=== PATIENT | female | born 1970 | race Caucasian/White ===

== ENCOUNTER 2020-03-27 11:42 | Observation (INO) | payer BC ==
[2020-03-27] MEDS ORDERED: SODIUM CHLORIDE 0.9% 1,000 ML IV STA (12:19)
[2020-03-27] MEDS ORDERED: MORPHINE SULFATE 2 MG/ML SYRINGE IVP STA (12:19)
[2020-03-27] MEDS ORDERED: ONDANSETRON 4 MG/2 ML VIAL IVP STA (12:19)
--- NOTE | 2020-03-27 12:25 | ED ---
General Adult HPI - General Chief complaint: Abdominal Pain Stated complaint: body aches Time Seen by Provider: 03/27/20 12:13 Source: patient, RN notes reviewed, old records reviewed Mode of arrival: ambulatory Limitations: no limitations - History of Present Illness Initial comments: 49-year-old female presents for evaluation of nausea vomiting and diarrhea. With some associated mild generalized abdominal pain. Patient's symptoms 7 present for today only. She states she's had some body aches as well as mild cough. No shortness of breath. She is uncertain if she's been exposed to anyone with coronavirus but believes she has. She's had previous cholecystectomy, previous appendectomy. Denies fever. - Related Data Previous Rx's Medication Instructions Recorded Ondansetron Odt [Zofran ODT] 4 mg PO Q8HR PRN #30 tab 02/17/14 Allergies Allergy/AdvReac Type Severity Reaction Status Date / Time No Known Allergies Allergy Verified 03/27/20 11:46 Review of Systems ROS Statement: Those systems with pertinent positive or pertinent negative responses have been documented in the HPI. ROS Other: All systems not noted in ROS Statement are negative. Past Medical History Past Medical History: No Reported History History of Any Multi-Drug Resistant Organisms: None Reported Past Surgical History: Appendectomy, Cholecystectomy, Hysterectomy Past Psychological History: No Psychological Hx Reported Smoking Status: Current every day smoker Past Alcohol Use History: None Reported Past Drug Use History: None Reported General Exam Limitations: no limitations General appearance: alert, in no apparent distress Head exam: Present: atraumatic, normocephalic Eye exam: Present: normal appearance, PERRL ENT exam: Present: mucous membranes dry Neck exam: Present: normal inspection. Absent: tenderness, meningismus Respiratory exam: Present: normal lung sounds bilaterally. Absent: respiratory distress, wheezes Cardiovascular Exam: Present: regular rate, normal rhythm GI/Abdominal exam: Present: soft, tenderness (Mild generalized tenderness). Absent: distended, guarding, rebound Extremities exam: Present: normal inspection, normal capillary refill. Absent: pedal edema Back exam: Present: normal inspection Neurological exam: Present: alert, oriented X3, CN II-XII intact. Absent: motor sensory deficit Psychiatric exam: Present: normal affect, normal mood Skin exam: Present: warm, dry, intact. Absent: cyanosis, diaphoretic Course Vital Signs 03/27/20 03/27/20 11:44 14:15 Temperature 97.9 F Pulse Rate 88 72 Respiratory 22 18 Rate Blood Pressure 112/74 105/66 O2 Sat by Pulse 100 100 Oximetry Medical Decision Making - Medical Decision Making 29-year-old female with generalized abdominal pain, nausea vomiting and diarrhea. Workup reveals leukocytosis, elevated hemoglobin, likely secondary to dehydration and hemoconcentration. She has normal electrolytes with exception of some mild hypercalcemia. Her coronavirus test is negative. At the time of reevaluation she still having significant nausea and vomiting. No episodes of diarrhea while in the emergency department. CT is performed which shows stomach distended by fluid as well as small bowel consistent with an enterocolitis. She will be admitted for symptom control. Case discussed with Dr. Munroe. - Lab Data Result diagrams: 03/27/20 12:31 03/27/20 12:31 Lab Results 03/27/20 03/27/20 03/27/20 Range/Units 12:31 12:31 12:31 WBC 15.1 H (3.8-10.6) k/uL RBC 5.32 (3.80-5.40) m/uL Hgb 16.9 H (11.4-16.0) gm/dL Hct 50.8 H (34.0-46.0) % MCV 95.5 (80.0-100.0) fL MCH 31.8 (25.0-35.0) pg MCHC 33.3 (31.0-37.0) g/dL RDW 11.8 (11.5-15.5) % Plt Count 347 (150-450) k/uL MPV 6.7 Neutrophils % 82 % Lymphocytes % 10 % Monocytes % 5 % Eosinophils % 1 % Basophils % 0 % Neutrophils # 12.4 H (1.3-7.7) k/uL Lymphocytes # 1.5 (1.0-4.8) k/uL Monocytes # 0.8 (0-1.0) k/uL Eosinophils # 0.2 (0-0.7) k/uL Basophils # 0.1 (0-0.2) k/uL PT 9.7 (9.0-12.0) sec INR 0.9 (<1.2) APTT 24.2 (22.0-30.0) sec Sodium 142 (137-145) mmol/L Potassium 5.1 (3.5-5.1) mmol/L Chloride 99 (98-107) mmol/L Carbon Dioxide 33 H (22-30) mmol/L Anion Gap 10 mmol/L BUN 15 (7-17) mg/dL Creatinine 0.86 (0.52-1.04) mg/dL Est GFR (CKD-EPI)AfAm >90 (>60 ml/min/1.73 sqM) Est GFR (CKD-EPI)NonAf 80 (>60 ml/min/1.73 sqM) Glucose 114 H (74-99) mg/dL Plasma Lactic Acid Sánchez (0.7-2.0) mmol/L Calcium 11.0 H (8.4-10.2) mg/dL Total Bilirubin 0.9 (0.2-1.3) mg/dL AST 26 (14-36) U/L ALT 21 (4-34) U/L Alkaline Phosphatase 102 (38-126) U/L Total Protein 8.6 H (6.3-8.2) g/dL Albumin 5.0 (3.5-5.0) g/dL Amylase 57 (30-110) U/L Lipase 38 (23-300) U/L Urine Color Urine Appearance (Clear) Urine pH (5.0-8.0) Ur Specific [place] (1.001-1.035) Urine Protein (Negative) Urine Glucose (UA) (Negative) Urine Ketones (Negative) Urine Blood (Negative) Urine Nitrite (Negative) Urine Bilirubin (Negative) Urine Urobilinogen (<2.0) mg/dL Ur Leukocyte Esterase (Negative) Urine RBC (0-5) /hpf Urine WBC (0-5) /hpf Ur Squamous Epith Cells (0-4) /hpf Urine Bacteria (None) /hpf Urine Mucus (None) /hpf Coronavirus (PCR) (Not Detectd) 03/27/20 03/27/20 03/27/20 Range/Units 12:31 12:38 12:38 WBC (3.8-10.6) k/uL RBC (3.80-5.40) m/uL Hgb (11.4-16.0) gm/dL Hct (34.0-46.0) % MCV (80.0-100.0) fL MCH (25.0-35.0) pg MCHC (31.0-37.0) g/dL RDW (11.5-15.5) % Plt Count (150-450) k/uL MPV Neutrophils % % Lymphocytes % % Monocytes % % Eosinophils % % Basophils % % Neutrophils # (1.3-7.7) k/uL Lymphocytes # (1.0-4.8) k/uL Monocytes # (0-1.0) k/uL Eosinophils # (0-0.7) k/uL Basophils # (0-0.2) k/uL PT (9.0-12.0) sec INR (<1.2) APTT (22.0-30.0) sec Sodium (137-145) mmol/L Potassium (3.5-5.1) mmol/L Chloride (98-107) mmol/L Carbon Dioxide (22-30) mmol/L Anion Gap mmol/L BUN (7-17) mg/dL Creatinine (0.52-1.04) mg/dL Est GFR (CKD-EPI)AfAm (>60 ml/min/1.73 sqM) Est GFR (CKD-EPI)NonAf (>60 ml/min/1.73 sqM) Glucose (74-99) mg/dL Plasma Lactic Acid Sánchez 1.0 (0.7-2.0) mmol/L Calcium (8.4-10.2) mg/dL Total Bilirubin (0.2-1.3) mg/dL AST (14-36) U/L ALT (4-34) U/L Alkaline Phosphatase (38-126) U/L Total Protein (6.3-8.2) g/dL Albumin (3.5-5.0) g/dL Amylase (30-110) U/L Lipase (23-300) U/L Urine Color Yellow Urine Appearance Cloudy H (Clear) Urine pH 6.0 (5.0-8.0) Ur Specific [place] 1.032 (1.001-1.035) Urine Protein 1+ H (Negative) Urine Glucose (UA) Negative (Negative) Urine Ketones Trace H (Negative) Urine Blood Negative (Negative) Urine Nitrite Negative (Negative) Urine Bilirubin Negative (Negative) Urine Urobilinogen 4.0 (<2.0) mg/dL Ur Leukocyte Esterase Moderate H (Negative) Urine RBC 2 (0-5) /hpf Urine WBC 5 (0-5) /hpf Ur Squamous Epith Cells 11 H (0-4) /hpf Urine Bacteria Many H (None) /hpf Urine Mucus Many H (None) /hpf Coronavirus (PCR) Not Detected (Not Detectd) Disposition Clinical Impression: Abdominal pain, Dehydration Disposition: ADMITTED IP TO THIS [facility] Condition: Stable Is patient prescribed a controlled substance at d/c from ED?: No Referrals: Conor Barrera MD [Primary Care Provider] - 1-2 days Decision to Admit Reason: Admit from EC Decision Date: 03/27/20 Decision Time: 14:31
[2020-03-27 12:51] LABS: Basophils # (A) 0.1 k/uL (0-0.2); Basophils % (A) 0 %; Eosinophils # (A) 0.2 k/uL (0-0.7); Eosinophils % (A) 1 %; HCT 50.8 % (34.0-46.0); HGB 16.9 gm/dL (11.4-16.0); Lymphocytes # (A) 1.5 k/uL (1.0-4.8); Lymphocytes % (A) 10 %; MCH 31.8 pg (25.0-35.0); MCHC 33.3 g/dL (31.0-37.0); MCV 95.5 fL (80.0-100.0); Mean Platelet Volume 6.7; Monocytes # (A) 0.8 k/uL (0-1.0); Monocytes % (A) 5 %; Neutrophils # (A) 12.4 k/uL (1.3-7.7); Neutrophils % (A) 82 %; Platelet Count 347 k/uL (150-450); RBC 5.32 m/uL (3.80-5.40); RDW 11.8 % (11.5-15.5); WBC 15.1 k/uL (3.8-10.6)
[2020-03-27 13:02] LABS: INR 0.9 (<1.2); Partial Thromboplastin Time 24.2 sec (22.0-30.0); Prothrombin Time 9.7 sec (9.0-12.0)
[2020-03-27 13:03] LABS: ALT 21 U/L (4-34); AST 26 U/L (14-36); African American GFR (CKD) >90 (>60 ml/min/1.73 sqM); Alkaline Phosphatase 102 U/L (38-126); Amylase 57 U/L (30-110); Anion Gap 10 mmol/L; Blood Urea Nitrogen 15 mg/dL (7-17); Carbon Dioxide 33 mmol/L (22-30); Chloride 99 mmol/L (98-107); Glucose 114 mg/dL (74-99); Lipase 38 U/L (23-300); Non-African American GFR(CKD) 80 (>60 ml/min/1.73 sqM); Potassium 5.1 mmol/L (3.5-5.1); Sodium 142 mmol/L (137-145); Total Bilirubin 0.9 mg/dL (0.2-1.3); Total Protein 8.6 g/dL (6.3-8.2)
--- NOTE | 2020-03-27 13:04 | XR ---
EXAMINATION TYPE: XR KUB DATE OF EXAM: 03/27/2020 COMPARISON: None INDICATION: Abdomen pain TECHNIQUE: Single view abdomen upright view FINDINGS: Nonspecific bowel gas pattern is present. Air-fluid levels within prominent small bowel loop within t he midabdomen. Some ascending colon air is present. Differential air-fluid levels are not identified. Psoas margins are normal. Cholecystectomy clips are present. No organomegaly is present. IMPRESSION: 1. Nonspecific abdomen. There is an air-fluid level within the prominent air-filled small bowel loop. Partial obstruction and ileus could also be considered within the differential.
[2020-03-27 13:13] LABS: Appearance,Urine Cloudy (Clear); Bacteria,Urine Many /hpf; Bilirubin,Urine Negative (Negative); Blood,Urine Negative (Negative); Color,Urine Yellow; Glucose,Urine (UA) Negative (Negative); Ketones,Urine Trace (Negative); Leukocyte Esterase,Urine Moderate (Negative); Mucus,Urine Many /hpf; Nitrite,Urine Negative (Negative); Protein,Urine 1+ (Negative); RBC,Urine 2 /hpf (0-5); Specific Gravity,Urine 1.032 (1.001-1.035); Squamous Epithelial Cell,Urine 11 /hpf (0-4); WBC,Urine 5 /hpf (0-5)
[2020-03-27] MEDS ORDERED: SODIUM CHLORIDE 0.9% 500 ML 500 ML IV ONE (13:43)
--- NOTE | 2020-03-27 14:20 | CT ---
EXAMINATION TYPE: CT abdomen pelvis w con DATE OF EXAM: 03/27/2020 COMPARISON: None HISTORY: Generalized pain with N/V/D. CT DLP: 855.3 mGycm CONTRAST: CT scan of the abdomen and pelvis is performed without Oral Contrast and with IV Contrast, patient in jected with 100 mL of Isovue 300. FINDINGS: LUNG BASES-: No visible nodule. No infiltrate. /GB: The gallbladder is surgically absent. No space occupying hepatic lesion. Biliary tree is of n ormal caliber. PANCREAS: No inflammation. No distinct mass. SPLEEN: No splenic enlargement. No lesion seen. ADRENALS: No nodule. No thickening. KIDNEYS/BLADDER: No hydronephrosis. No nephrolithiasis. No distinct renal mass. Urinary bladder g rossly unremarkable. BOWEL: There is fluid distended stomach and small bowel. Small bowel loops measure up to 3 cm. There is also fluid distention of the right hemicolon. Small bowel loops are mildly thickened. Findings may reflect enterocolitis. I do not see evidence for inflammatory process. There is nonvisualization of the appendix however no definite right lower quadrant inflammatory changes seen. Clinical correlation is advised. No evidence of free air or abscess. GENITAL ORGANS: No gross abnormality. LYMPH NODES: No greater than 1cm abdominal or pelvic lymph nodes are appreciated. AORTA: No significant abnormality. STRUCTURES: No significant abnormality is seen. OTHER: No significant additional abnormality is seen. IMPRESSION: 1. The findings suggest enterocolitis. Correlate clinically. Nonvisualization of the appendix.
[2020-03-27] MEDS ORDERED: NALOXONE 0.4 MG/ML 1 ML VIAL IV PRN ×2 (14:27→14:28)
[2020-03-27] MEDS ORDERED: ONDANSETRON 4 MG/2 ML VIAL IVP PRN (14:28)
[2020-03-27] MEDS ORDERED: ACETAMINOPHEN TAB 325 MG TAB PO PRN (14:28)
[2020-03-27] MEDS ORDERED: LORazepam 2 MG/ML INJ IV PRN (14:28)
[2020-03-27] MEDS: MORPHINE SULFATE 4 MG/ML SYRINGE IV PRN ×2 (15:59→20:20)
[2020-03-27] MEDS: SODIUM CHLORIDE 0.9% 1,000 ML IV SCH (16:00)
[2020-03-27] MEDS ORDERED: ALBUTEROL HFA INHALER INHALATION PRN (16:03)
[2020-03-27] MEDS ORDERED: ALPRAZolam 1 MG TAB PO PRN (16:03)
[2020-03-27] MEDS: metroNIDAZOLE-NS PMX 500 MG in SALINE 1 100ML.BAG IVPB SCH ×2 (16:16→23:40)
[2020-03-28] MEDS: SODIUM CHLORIDE 0.9% 1,000 ML IV SCH ×2 (01:48→12:21)
[2020-03-28 07:16] VITALS: RESP 16
[2020-03-28 09:11] LABS: African American GFR (CKD) 117.9 (60.0-200.0); Anion Gap 6.4 mmol/L (4.00-12.00); BUN/Creat Ratio 14.29 Ratio (12.00-20.00); Calcium 8.6 mg/dL (8.7-10.3); Carbon Dioxide 26.6 mmol/L (21.6-31.8); Non-African American GFR(CKD) 101.7 (60.0-200.0); Potassium 4.7 mmol/L (3.5-5.5)
[2020-03-28] MEDS: metroNIDAZOLE-NS PMX 500 MG in SALINE 1 100ML.BAG IVPB SCH (09:42)
--- NOTE | 2020-03-28 11:48 | P.HPIM ---
History of Present Illness H&P Date: 03/27/20 Chief Complaint: Abdominal pain 49-year-old female presents for evaluation of nausea vomiting and diarrhea. With some associated mild generalized abdominal pain. Patient's symptoms 7 present for today only. She states she's had some body aches as well as mild cough. No shortness of breath. She is uncertain if she's been exposed to anyone with coronavirus but believes she has. She's had previous cholecystectomy, previous appendectomy. Denies fever. Workup in ED reveals an elevated white blood count of 15.1, elevated hemoglobin and hematocrit; CT of the abdomen was done which showed distended stomach as well as enteric colitis Review of Systems REVIEW OF SYSTEMS: CONSTITUTIONAL: No fever, no malaise, no fatigue. HEENT: No recent visual problems or hearing problems. Denied any sore throat. CARDIOVASCULAR: No chest pain, orthopnea, PND, no palpitations, no syncope. PULMONARY: No shortness of breath, no cough, no hemoptysis. GASTROINTESTINAL: Nausea vomiting and diarrhea. NEUROLOGICAL: No headaches, no weakness, no numbness. HEMATOLOGICAL: Denies any bleeding or petechiae. GENITOURINARY: Denies any burning micturition, frequency, or urgency. MUSCULOSKELETAL/RHEUMATOLOGICAL: Denies any joint pain, swelling, or any muscle pain. ENDOCRINE: Denies any polyuria or polydipsia. The rest of the 14-point review of systems is negative. Past Medical History Past Medical History: Asthma, Pneumonia Additional Past Medical History / Comment(s): UTIs History of Any Multi-Drug Resistant Organisms: None Reported Past Surgical History: Adenoidectomy, Appendectomy, Cholecystectomy, Hysterectomy, Tonsillectomy Past Anesthesia/Blood Transfusion Reactions: No Reported Reaction Smoking Status: Current every day smoker - Past Family History Father Family Medical History: Asthma Additional Family Medical History / Comment(s): Father is . Mother Family Medical History: No Reported History Additional Family Medical History / Comment(s): Mother is healthy Medications and Allergies Home Medications Medication Instructions Recorded Confirmed Type ALPRAZolam [Xanax] 1 mg PO DAILY PRN 03/27/20 03/27/20 History Albuterol Sulfate [Proair Hfa] 2 puff INHALATION RT-QID PRN 03/27/20 03/27/20 History Allergies Allergy/AdvReac Type Severity Reaction Status Date / Time No Known Allergies Allergy Verified 03/27/20 14:45 Physical Exam Vitals: Vital Signs Temp Pulse Pulse Resp BP BP Pulse Ox 03/27/20 15:51 97.6 F 74 18 121/68 100 03/27/20 15:20 98.3 F 73 18 105/57 100 03/27/20 14:15 72 18 105/66 100 03/27/20 11:44 97.9 F 88 22 112/74 100 Intake and Output 03/27/20 03/27/20 03/27/20 06:59 14:59 22:59 Other: Weight 61.235 kg 61.235 kg - Constitutional General appearance: Present: average body habitus, cooperative, no acute distress - EENT Eyes: Present: anicteric sclerae, EOMI, PERRLA, normal appearance ENT: Present: hearing grossly normal, normal oropharynx Ears: bilateral: normal - Neck Neck: Present: normal ROM. Absent: lymphadenopathy, rigidity, thyromegaly Carotids: negative: bruit present Thyroid: bilateral: normal size, negative: enlarged, nodule - Respiratory Respiratory: bilateral: CTA, negative: rales, rhonchi, wheezing - Cardiovascular Rhythm: regular Heart sounds: normal: S1, S2 Abnormal Heart Sounds: Absent: systolic murmur, diastolic murmur - Gastrointestinal General gastrointestinal: Present: normal bowel sounds, soft. Absent: dis tended, organomegaly, tenderness - Genitourinary Genitourinary Comment(s): deferred - Integumentary Integumentary: Present: normal turgor. Absent: jaundiced, rash, ulcer - Neurologic Neurologic: Present: CNII-XII intact. Absent: focal deficits - Musculoskeletal Musculoskeletal: Present: gait normal, strength equal bilaterally - Psychiatric Psychiatric: Present: A&O x's 3, appropriate affect, intact judgment & insight Results CBC & Chem 7: 03/27/20 12:31 03/28/20 06:22 Labs: Abnormal Lab Results - Last 24 Hours (Table) 03/27/20 03/27/20 03/27/20 Range/Units 12:31 12:31 12:38 WBC 15.1 H (3.8-10.6) k/uL Hgb 16.9 H (11.4-16.0) gm/dL Hct 50.8 H (34.0-46.0) % Neutrophils # 12.4 H (1.3-7.7) k/uL Carbon Dioxide 33 H (22-30) mmol/L Glucose 114 H (74-99) mg/dL Calcium 11.0 H (8.4-10.2) mg/dL Total Protein 8.6 H (6.3-8.2) g/dL Urine Appearance Cloudy H (Clear) Urine Protein 1+ H (Negative) Urine Ketones Trace H (Negative) Ur Leukocyte Esterase Moderate H (Negative) Ur Squamous Epith Cells 11 H (0-4) /hpf Urine Bacteria Many H (None) /hpf Urine Mucus Many H (None) /hpf Thrombosis Risk Factor Assmnt - Choose All That Apply Any of the Below Risk Factors Present?: Yes Each Factor Represents 1 point: Age 41-60 years Other Risk Factors: No Other congenital or acquired thrombophilia - If yes, enter type in comment: No Thrombosis Risk Factor Assessment Total Risk Factor Score: 1 Thrombosis Risk Factor Assessment Level: Low Risk Assessment and Plan Assessment: 1. Intractable nausea/vomiting/diarrhea; enterocolitis - We will start patient on IV Rocephin and Flagyl; IV hydration in form of normal saline at a rate of 100 mL an hour; morphine 4 mg IV every 4 hours when necessary; start patient on clear liquid diet and advance as tolerated - consult GI for further recommendations 2. Hemoconcentration/dehydration; IV fluids in form of normal saline at a rate of 100 mL an hour; monitor strict KISHOR's; monitor renal function and electrolytes 3. Leukocytosis secondary to 1 or 2; possibly reactive; patient has been started on IV antibiotics; we will monitor CBC and inflammatory markers DVT prophylaxis; SCDs CODE STATUS; DO NOT RESUSCITATE confirmed at bedside
[2020-03-28 14:39] VITALS: TEMP 98.1
[2020-03-28 14:40] VITALS: BP 99/63; PULSE 79
== END 2020-03-28 15:05 | disposition home or self-care (01) ==
LOC: EC 11:42 → 6NMEDSUR 14:27
PROVIDERS: ADMIT Internal Medicine; ATTEND Internal Medicine
DX: K52.9 Noninfective gastroenteritis and colitis, unspecified (principal); E86.0 Dehydration; D72.829 Elevated white blood cell count, unspecified; F17.200 Nicotine dependence, unspecified, uncomplicated; E83.52 Hypercalcemia; R52 Pain, unspecified; J45.909 Unspecified asthma, uncomplicated; Z90.49 Acquired absence of other specified parts of digestive tract; Z90.710 Acquired absence of both cervix and uterus; Z20.822 Contact with and (suspected) exposure to COVID-19; Z87.01 Personal history of pneumonia (recurrent); Z87.440 Personal history of urinary (tract) infections; Z79.899 Other long term (current) drug therapy; Z66 Do not resuscitate; Z82.5 Family history of asthma and other chronic lower respiratory diseases
CPT/HCPCS: 96376; 96365; 96366 ×2; 96368; 96361; 96375; 99285; 36415; 80053; 80048; 82150; 83605; 83690; 85025; 85610; 85730; 81001; 87635; 74018; 74177; G0378 ×2; J2270 ×2; J2405; J0696 ×2; Q9967

== ENCOUNTER 2020-12-04 17:55 | Emergency (ER) | payer BC ==
[2020-12-04] MEDS ORDERED: SODIUM CHLORIDE 0.9% 50 ML IVPB ONE (20:15)
[2020-12-04] MEDS ORDERED: CASIRIVIMAB (REGN10933) (EUA) 600 MG, IMDEVIMAB (REGN10987) (EUA) 600 MG in SODIUM CHLO... IVPB ONE (20:15)
--- NOTE | 2020-12-04 20:23 | XR ---
EXAMINATION TYPE: XR chest 1V portable DATE OF EXAM: 12/04/2020 COMPARISON: NONE HISTORY: Short of breath TECHNIQUE: Single view FINDINGS: Heart and mediastinum are normal. Lungs are clear. Diaphragm is normal. Bony thorax is inta ct. IMPRESSION: Normal chest.
[2020-12-04] MEDS ORDERED: SODIUM CHLORIDE 0.9% 500 ML 500 ML IV STA (20:27)
[2020-12-04] MEDS ORDERED: DEXAMETHASONE SOD PHOSPHATE 10 MG/ML 1 ML VIAL IVP STA (20:27)
[2020-12-04 22:06] VITALS: PULSE 71
[2020-12-04] MEDS ORDERED: KETOROLAC 15 MG/ML 1 ML VIAL IVP STA (23:15)
[2020-12-04] MEDS ORDERED: ACETAMINOPHEN TAB 500 MG TAB PO STA (23:16)
--- NOTE | 2020-12-04 23:17 | ED ---
URI HPI - General Chief Complaint: Upper Respiratory Infection Stated Complaint: Covid+, james Time Seen by Provider: 12/04/20 19:34 Source: patient, RN notes reviewed Mode of arrival: ambulatory Limitations: no limitations - History of Present Illness Initial Comments: Patient is a 50-year-old female with history of asthma, presenting to the emergency department with concerns of worsening Covid symptoms. She started having symptoms about 7 days ago, tested +6 days ago. She is complaining of generalized fatigue, body aches and coughing. She denies any chest pains, no abdominal pains, she has occasional nausea but no vomiting or diarrhea. Her appetite has been a little bit lower but able to tolerate fluids. Patient has no further complaints. Her vitals are stable upon arrival. - Related Data Home Medications Medication Instructions Recorded Confirmed ALPRAZolam [Xanax] 1 mg PO DAILY PRN 03/27/20 03/27/20 Albuterol Sulfate [Proair Hfa] 2 puff INHALATION RT-QID PRN 03/27/20 03/27/20 Previous Rx's Medication Instructions Recorded Dexamethasone [Decadron] 6 mg PO DAILY 5 Days #5 tablet 12/04/20 Allergies Allergy/AdvReac Type Severity Reaction Status Date / Time No Known Allergies Allergy Verified 12/04/20 19:13 Review of Systems ROS Statement: Those systems with pertinent positive or pertinent negative responses have been documented in the HPI. ROS Other: All systems not noted in ROS Statement are negative. Past Medical History Past Medical History: Asthma, Pneumonia Additional Past Medical History / Comment(s): UTIs History of Any Multi-Drug Resistant Organisms: None Reported Past Surgical History: Adenoidectomy, Appendectomy, Cholecystectomy, Hysterectomy, Tonsillectomy Past Anesthesia/Blood Transfusion Reactions: No Reported Reaction Past Psychological History: Anxiety Smoking Status: Current every day smoker Past Alcohol Use History: None Reported Past Drug Use History: None Reported - Past Family History Father Family Medical History: Asthma Additional Family Medical History / Comment(s): Father is . Mother Family Medical History: No Reported History Additional Family Medical History / Comment(s): Mother is healthy General Exam - General Exam Comments Initial Comments: GENERAL: Patient is well-developed and well-nourished. Patient is nontoxic and in no acute distress. HEAD: Atraumatic, normocephalic. EYES: Pupils equal round and reactive to light, extraocular movements intact, sclera anicteric, conjunctiva are normal. Eyelids were unremarkable. ENT: Oropharynx clear without exudates. Moist mucous membranes. NECK: Normal range of motion, supple without lymphadenopathy or JVD. LUNGS: Unlabored respirations. Very mild scattered wheezes in the upper lobes, no other abnormalities HEART: Regular rate and rhythm without murmurs, rubs or gallops. ABDOMEN: Soft, nontender, normoactive bowel sounds. No guarding, no rebound. No masses appreciated. MUSCULOSKELETAL: Normal extremities with adequate strength and normal range of motion, no pitting or edema. No clubbing or cyanosis. NEUROLOGICAL: Patient is alert and oriented x 3. SKIN: Warm, Dry, normal turgor, no rashes or lesions noted. Limitations: no limitations Course Vital Signs 12/04/20 12/04/20 19:08 22:00 Temperature 97.4 F L 97.4 F L Pulse Rate 73 71 Respiratory 22 19 Rate Blood Pressure 116/66 138/84 O2 Sat by Pulse 98 98 Oximetry Medical Decision Making - Medical Decision Making Patient is a 50-year-old female here with her Covid symptoms over the past week, she tested +6 days ago. Her vitals are stable, exam reveals some very mild wheezes but no other acute abnormality. Chest x-ray shows no acute abnormality. Patient did agree to monoclonal antibodies, she did receive these. I also gave her some medicine for headache and fluids. She is resting comfortably. She is stable for discharge. I will continue her on steroids secondary to the wheezes heard on exam. She is agreeable to this plan of care and she is stable for discharge. Return parameters were discussed with her and she verbalized understanding. Case discussed with Dr. Mariano. Disposition Clinical Impression: COVID-19 Disposition: HOME SELF-CARE Condition: Stable Instructions (If sedation given, give patient instructions): Coronavirus Disease 2019 (COVID-19) Additional Instructions: Please return to the Emergency Department if symptoms worsen or any other concerns. Take steroids as prescribed. Alternate between Tylenol and ibuprofen for pain control. Use albuterol inhaler as needed for any shortness of breath or cough. Follow up with your primary care. Prescriptions: Dexamethasone [Decadron] 6 mg PO DAILY 5 Days #5 tablet Is patient prescribed a controlled substance at d/c from ED?: No Referrals: Conor Barrera MD [Primary Care Provider] - 1-2 days Time of Disposition: 23:17
[2020-12-05 00:04] VITALS: BP 145/77; RESP 17; TEMP 97.9
== END 2020-12-05 00:04 | disposition home or self-care (01) ==
LOC: EC 17:55
DX: U07.1 COVID-19 (principal); J45.909 Unspecified asthma, uncomplicated; F41.9 Anxiety disorder, unspecified; F17.200 Nicotine dependence, unspecified, uncomplicated; Z87.440 Personal history of urinary (tract) infections; Z90.89 Acquired absence of other organs; Z90.49 Acquired absence of other specified parts of digestive tract; Z90.710 Acquired absence of both cervix and uterus
CPT/HCPCS: 99284 ×2; 96365; 96375 ×3; 71045; M0243; J1100; J1885; Q0243

== ENCOUNTER 2021-05-23 16:50 | Emergency (ER) | payer BC ==
[2021-05-23 16:54] VITALS: TEMP 98.7
[2021-05-23] MEDS ORDERED: SODIUM CHLORIDE 0.9% 1,000 ML IV STA (18:01)
[2021-05-23] MEDS ORDERED: MORPHINE SULFATE 4 MG/ML SYRINGE IV STA (18:01)
[2021-05-23] MEDS ORDERED: PANTOPRAZOLE 40 MG/10 ML VIAL IVP STA (18:01)
[2021-05-23 18:41] LABS: Basophils # (A) 0.1 k/uL (0-0.2); Basophils % (A) 1 %; Eosinophils # (A) 0.2 k/uL (0-0.7); Eosinophils % (A) 2 %; HCT 41.4 % (34.0-46.0); HGB 13.3 gm/dL (11.4-16.0); Lymphocytes # (A) 2.1 k/uL (1.0-4.8); Lymphocytes % (A) 18 %; MCH 31.5 pg (25.0-35.0); MCHC 32.2 g/dL (31.0-37.0); MCV 97.7 fL (80.0-100.0); Mean Platelet Volume 7.3; Monocytes # (A) 0.8 k/uL (0-1.0); Monocytes % (A) 7 %; Neutrophils # (A) 8.2 k/uL (1.3-7.7); Neutrophils % (A) 71 %; Platelet Count 305 k/uL (150-450); RBC 4.23 m/uL (3.80-5.40); WBC 11.5 k/uL (3.8-10.6)
[2021-05-23 18:50] LABS: Appearance,Urine Cloudy (Clear); Bacteria,Urine Many /hpf; Bilirubin,Urine Negative (Negative); Blood,Urine Trace (Negative); Color,Urine Yellow; Glucose,Urine (UA) Negative (Negative); Ketones,Urine Negative (Negative); Leukocyte Esterase,Urine Small (Negative); Mucus,Urine Occasional /hpf; Nitrite,Urine Negative (Negative); PH, Urine 5.5 (5.0-8.0); Protein,Urine Trace (Negative); RBC,Urine 3 /hpf (0-5); Specific Gravity,Urine 1.029 (1.001-1.035); Squamous Epithelial Cell,Urine 8 /hpf (0-4); WBC,Urine 15 /hpf (0-5)
[2021-05-23 18:52] VITALS: BP 110/68; PULSE 65; RESP 17
[2021-05-23 18:55] LABS: INR 0.9 (<1.2); Prothrombin Time 9.7 sec (9.0-12.0)
[2021-05-23 19:04] LABS: ALT 12 U/L (4-34); AST 16 U/L (14-36); African American GFR (CKD) >90 (>60 ml/min/1.73 sqM); Albumin 3.9 g/dL (3.5-5.0); Alkaline Phosphatase 97 U/L (38-126); Anion Gap 8 mmol/L; Blood Urea Nitrogen 13 mg/dL (7-17); Calcium 8.8 mg/dL (8.4-10.2); Carbon Dioxide 27 mmol/L (22-30); Chloride 105 mmol/L (98-107); Glucose 92 mg/dL (74-99); Lipase 73 U/L (23-300); Non-African American GFR(CKD) 78 (>60 ml/min/1.73 sqM); Potassium 4.2 mmol/L (3.5-5.1); Sodium 140 mmol/L (137-145); Total Bilirubin 0.5 mg/dL (0.2-1.3); Total Protein 6.9 g/dL (6.3-8.2)
--- NOTE | 2021-05-23 19:15 | CT ---
EXAMINATION TYPE: CT abdomen pelvis w con DATE OF EXAM: 05/23/2021 COMPARISON: 03/27/2020 HISTORY: Abdominal pain, vaginal bleeding CT DLP: 897.6 mGycm Automated exposure control for dose reduction was used. CONTRAST: Performed with IV Contrast, patient injected with 100 mL of Isovue 300. Images obtained from the diaphragm to the floor of the pelvis with IV contrast. Lung bases are clear. There is no pleural effusion. Heart size is normal. There is no pericardial eff usion. Liver spleen stomach and pancreas appear intact. There is some dilation of the biliary tree. T he common bile duct measures 1.7 cm. There is minimal ectasia of the intrahepatic bile ducts. No obst ructing lesion seen. There is no adrenal mass. Kidneys show satisfactory contrast opacification. There is no hydronephrosi s. Ureters are not dilated. There is no retroperitoneal adenopathy. Delayed images show fairly normal renal excretion. The bladder distends smoothly. There is no inguinal hernia. No free fluid in the pe lvis. No pelvic mass. Appendix not clearly seen. No sign of thickened appendix. There is no mesenteric edema. No evidence of free air. There is some diffuse wall thickening of the s plenic flexure of the colon. The lumbar vertebrae have normal alignment. No compression fracture. Posterior elements are intact. B blanquita pelvis is intact. The hip joints are intact. IMPRESSION: Wall thickening and mild fat stranding involving the splenic flexure of the colon consistent with foc al colitis. This appears new compared to old exam. There is clearing of the dilated fluid-filled loop s of bowel compared to old exam. Mild ectasia of the biliary tree stable compared to old exam.
[2021-05-23] MEDS ORDERED: cefTRIAXone IN SWFI 1,000 MG/10 ML SYRINGE IVP STA (19:44)
[2021-05-23] MEDS ORDERED: metroNIDAZOLE 500 MG TAB PO STA (19:45)
--- NOTE | 2021-05-23 19:47 | ED ---
General Adult HPI - General Chief complaint: Vaginal Bleeding Stated complaint: Vaginal Bleeding Time Seen by Provider: 05/23/21 16:58 Source: patient Mode of arrival: ambulatory Limitations: no limitations - History of Present Illness Initial comments: 50-year-old female with past history of asthma presents emergency Department with reported bleeding. Patient admits that since yesterday she has had some bleeding when she uses the restroom. She is unsure where it is coming from. States that she sees the clots in the bowl when she is urinating and defecating. Does have history of frequent urinary tract infections but denies dysuria or increased frequency of urination. Has had a hysterectomy. Denies previous history of rectal bleeding. No alcohol or NSAID use. No history of peptic ulcer disease. Has never had an EGD or colonoscopy. Denies any rectal pain. Does admit to some left-sided abdominal pain with a palpable enlarged lymph node in her left groin. Denies chest pain or shortness of breath. No fevers. No abnormal vaginal discharge. No other alleviating, precipitating or modifying factors - Related Data Home Medications Medication Instructions Recorded Confirmed ALPRAZolam [Xanax] 1 mg PO DAILY PRN 03/27/20 03/27/20 Albuterol Sulfate [Proair Hfa] 2 puff INHALATION RT-QID PRN 03/27/20 03/27/20 Previous Rx's Medication Instructions Recorded Dexamethasone [Decadron] 6 mg PO DAILY 5 Days #5 tablet 12/04/20 Amoxicillin/Potassium Clav 1 tab PO Q12HR #20 tab 05/23/21 [Augmentin 875-125 Tablet] Allergies Allergy/AdvReac Type Severity Reaction Status Date / Time No Known Allergies Allergy Verified 05/23/21 16:54 Review of Systems ROS Statement: Those systems with pertinent positive or pertinent negative responses have been documented in the HPI. ROS Other: All systems not noted in ROS Statement are negative. Past Medical History Past Medical History: Asthma, Pneumonia Additional Past Medical History / Comment(s): UTIs History of Any Multi-Drug Resistant Organisms: None Reported Past Surgical History: Adenoidectomy, Appendectomy, Cholecystectomy, Hysterectomy, Tonsillectomy Past Anesthesia/Blood Transfusion Reactions: No Reported Reaction Past Psychological History: Anxiety Smoking Status: Current every day smoker Past Alcohol Use History: None Reported Past Drug Use History: None Reported - Past Family History Father Family Medical History: Asthma Additional Family Medical History / Comment(s): Father is . Mother Family Medical History: No Reported History Additional Family Medical History / Comment(s): Mother is healthy General Exam Limitations: no limitations General appearance: alert, in no apparent distress Head exam: Present: atraumatic, normocephalic, normal inspection Eye exam: Present: normal appearance, PERRL, EOMI. Absent: scleral icterus, conjunctival injection, periorbital swelling ENT exam: Present: normal exam, mucous membranes moist Neck exam: Present: normal inspection. Absent: tenderness, meningismus, lymphadenopathy Respiratory exam: Present: normal lung sounds bilaterally. Absent: respiratory distress, wheezes, rales, rhonchi, stridor Cardiovascular Exam: Present: regular rate, normal rhythm, normal heart sounds. Absent: systolic murmur, diastolic murmur, rubs, gallop, clicks GI/Abdominal exam: Present: soft, normal bowel sounds. Absent: distended, tende rness, guarding, rebound, rigid Rectal exam: Present: normal rectal tone, bloody stool. Absent: mass, tenderness Extremities exam: Present: normal inspection, full ROM, normal capillary refill. Absent: tenderness, pedal edema, joint swelling, calf tenderness Back exam: Present: normal inspection Neurological exam: Present: alert, oriented X3, CN II-XII intact Psychiatric exam: Present: normal affect, normal mood Skin exam: Present: warm, dry, intact, normal color. Absent: rash Course Vital Signs 05/23/21 05/23/21 16:51 18:35 Temperature 98.7 F Pulse Rate 68 65 Respiratory 22 17 Rate Blood Pressure 119/59 110/68 O2 Sat by Pulse 99 98 Oximetry Medical Decision Making - Medical Decision Making Upon arrival patient is placed in room 21. A thorough history and physical exam was performed. IV access established and laboratory studies are conducted. Speculum exam is performed and there is no identifiable vaginal bleeding. No blood around the urethral opening. I did perform a rectal exam which does demonstrate some bright red blood. Patient sent for CT due to report of abdominal pain. Labs are reviewed. Hemoglobin 13.3. Occult is positive. CT demonstrates mild fat stranding involving the splenic flexure of the colon consistent with focal colitis. Results are discussed with the patient. She does request discharge home. She is given a dose of Rocephin and Flagyl in the emergency room. Patient will be discharged home on Augmentin. Instructed take the medications as directed and follow-up with primary care doctor in 2-4 days. You will need a colonoscopy in 1-2 months. Return to the emergency room for any new or worsening symptoms for patient agreed to the treatment plan was discharged home in stable condition - Lab Data Result diagrams: 05/23/21 18:15 05/23/21 18:15 Lab Results 05/23/21 05/23/21 05/23/21 Range/Units 18:15 18:15 18:15 WBC 11.5 H (3.8-10.6) k/uL RBC 4.23 (3.80-5.40) m/uL Hgb 13.3 (11.4-16.0) gm/dL Hct 41.4 (34.0-46.0) % MCV 97.7 (80.0-100.0) fL MCH 31.5 (25.0-35.0) pg MCHC 32.2 (31.0-37.0) g/dL RDW 12.0 (11.5-15.5) % Plt Count 305 (150-450) k/uL MPV 7.3 Neutrophils % 71 % Lymphocytes % 18 % Monocytes % 7 % Eosinophils % 2 % Basophils % 1 % Neutrophils # 8.2 H (1.3-7.7) k/uL Lymphocytes # 2.1 (1.0-4.8) k/uL Monocytes # 0.8 (0-1.0) k/uL Eosinophils # 0.2 (0-0.7) k/uL Basophils # 0.1 (0-0.2) k/uL PT (9.0-12.0) sec INR (<1.2) APTT (22.0-30.0) sec Sodium 140 (137-145) mmol/L Potassium 4.2 (3.5-5.1) mmol/L Chloride 105 (98-107) mmol/L Carbon Dioxide 27 (22-30) mmol/L Anion Gap 8 mmol/L BUN 13 (7-17) mg/dL Creatinine 0.87 (0.52-1.04) mg/dL Est GFR (CKD-EPI)AfAm >90 (>60 ml/min/1.73 sqM) Est GFR (CKD-EPI)NonAf 78 (>60 ml/min/1.73 sqM) Glucose 92 (74-99) mg/dL Calcium 8.8 (8.4-10.2) mg/dL Total Bilirubin 0.5 (0.2-1.3) mg/dL AST 16 (14-36) U/L ALT 12 (4-34) U/L Alkaline Phosphatase 97 (38-126) U/L Total Protein 6.9 (6.3-8.2) g/dL Albumin 3.9 (3.5-5.0) g/dL Lipase 73 (23-300) U/L Urine Color Yellow Urine Appearance Cloudy H (Clear) Urine pH 5.5 (5.0-8.0) Ur Specific [place] 1.029 (1.001-1.035) Urine Protein Trace H (Negative) Urine Glucose (UA) Negative (Negative) Urine Ketones Negative (Negative) Urine Blood Trace H (Negative) Urine Nitrite Negative (Negative) Urine Bilirubin Negative (Negative) Urine Urobilinogen 2.0 (<2.0) mg/dL Ur Leukocyte Esterase Small H (Negative) Urine RBC 3 (0-5) /hpf Urine WBC 15 H (0-5) /hpf Ur Squamous Epith Cells 8 H (0-4) /hpf Urine Bacteria Many H (None) /hpf Urine Mucus Occasional H (None) /hpf Stool Occult Blood (Negative) 05/23/21 05/23/21 Range/Units 18:15 18:15 WBC (3.8-10.6) k/uL RBC (3.80-5.40) m/uL Hgb (11.4-16.0) gm/dL Hct (34.0-46.0) % MCV (80.0-100.0) fL MCH (25.0-35.0) pg MCHC (31.0-37.0) g/dL RDW (11.5-15.5) % Plt Count (150-450) k/uL MPV Neutrophils % % Lymphocytes % % Monocytes % % Eosinophils % % Basophils % % Neutrophils # (1.3-7.7) k/uL Lymphocytes # (1.0-4.8) k/uL Monocytes # (0-1.0) k/uL Eosinophils # (0-0.7) k/uL Basophils # (0-0.2) k/uL PT 9.7 (9.0-12.0) sec INR 0.9 (<1.2) APTT 26.0 (22.0-30.0) sec Sodium (137-145) mmol/L Potassium (3.5-5.1) mmol/L Chloride (98-107) mmol/L Carbon Dioxide (22-30) mmol/L Anion Gap mmol/L BUN (7-17) mg/dL Creatinine (0.52-1.04) mg/dL Est GFR (CKD-EPI)AfAm (>60 ml/min/1.73 sqM) Est GFR (CKD-EPI)NonAf (>60 ml/min/1.73 sqM) Glucose (74-99) mg/dL Calcium (8.4-10.2) mg/dL Total Bilirubin (0.2-1.3) mg/dL AST (14-36) U/L ALT (4-34) U/L Alkaline Phosphatase (38-126) U/L Total Protein (6.3-8.2) g/dL Albumin (3.5-5.0) g/dL Lipase (23-300) U/L Urine Color Urine Appearance (Clear) Urine pH (5.0-8.0) Ur Specific [place] (1.001-1.035) Urine Protein (Negative) Urine Glucose (UA) (Negative) Urine Ketones (Negative) Urine Blood (Negative) Urine Nitrite (Negative) Urine Bilirubin (Negative) Urine Urobilinogen (<2.0) mg/dL Ur Leukocyte Esterase (Negative) Urine RBC (0-5) /hpf Urine WBC (0-5) /hpf Ur Squamous Epith Cells (0-4) /hpf Urine Bacteria (None) /hpf Urine Mucus (None) /hpf Stool Occult Blood Positive H (Negative) Disposition Clinical Impression: Colitis, Lower GI bleed Disposition: HOME SELF-CARE Condition: Stable Instructions (If sedation given, give patient instructions): Colitis (ED) Additional Instructions: Take the antibiotics as directed and follow up with your primary care doctor in 2-4 days. You will need a colonoscopy within 1-2 months. I recommend that you follow-up with Dr. De León for this procedure. Please return if you do not have any improvement in your symptoms. Prescriptions: Amoxicillin/Potassium Clav [Augmentin 875-125 Tablet] 1 tab PO Q12HR #20 tab Is patient prescribed a controlled substance at d/c from ED?: No Referrals: Conor Barrera MD [Primary Care Provider] - 1-2 days Rena De León MD [STAFF PHYSICIAN] - 1-2 days Time of Disposition: 19:46
== END 2021-05-23 20:23 | disposition home or self-care (01) ==
LOC: EC 16:50
DX: K52.9 Noninfective gastroenteritis and colitis, unspecified (principal); J45.909 Unspecified asthma, uncomplicated; F17.200 Nicotine dependence, unspecified, uncomplicated
CPT/HCPCS: 36415; 80053; 83690; 85025; 85610; 85730; 82272; 81001; 87086; 87077; 87186; 74177; 99284; 96374; 96375; 96361; J2270; J0696; C9113; Q9967

== ENCOUNTER → 2023-10-18 | Outpatient (CLI) | payer BC ==
--- NOTE | 2023-10-18 15:05 | CT ---
EXAMINATION TYPE: CT abdomen pelvis w con CT DLP: 1185 mGycm, Automated exposure control for dose reduction was used. DATE OF EXAM: 10/18/2023 1:55 PM COMPARISON: CT abdomen pelvis 05/23/2021, 03/27/2020 . CLINICAL INDICATION:Female, 53 years old with history of R19.07 ABD AND PELVIC SWELLING,MASS AND LUMP ; PELVIC MASS/WEIGHT LOSS TECHNIQUE: Standard CT of the abdomen and pelvis following the administration of 100 cc of Isovue 3 00 IV contrast material and oral contrast. Coronal and sagittal reformats were performed. FINDINGS: LOWER CHEST: Unremarkable ABDOMEN LIVER: Unremarkable GALLBLADDER AND BILE DUCTS: Gallbladder is surgically absent with mild intrahepatic and extra hepatic biliary dilatation likely physiologic and a postcholecystectomy change. No evidence of choledocholit hiasis. PANCREAS: Unremarkable. SPLEEN: Unremarkable. ADRENAL GLANDS: Unremarkable. KIDNEYS AND URETERS: No evidence of hydronephrosis or renal calculus. The kidneys enhance symmetrical ly. Contrast is demonstrated within both collecting systems on the delayed phase. PELVIS BLADDER: Unremarkable REPRODUCTIVE: The uterus is surgically absent. ABDOMEN & PELVIS STOMACH AND BOWEL: Stomach and duodenum are unremarkable. No focal bowel wall thickening or surroundi ng inflammatory changes. Enteric contrast reaches the mid small bowel. Few scattered colonic divertic brooke without surrounding inflammatory changes to suggest acute diverticulitis. The appendix is not vis ualized however no significant inflammatory changes within the right lower quadrant. No evidence of b owel obstruction. PERITONEUM/RETROPERITONEUM/LYMPH NODES: No evidence of pneumoperitoneum or free fluid. Large abnormal left inguinal lymph node measuring 6.4 x 3.2 centimeters. Conglomerate adenopathy which encases the IVC and aorta measuring grossly 8.1 x 5.1 x 13.7 cm in TV, AP, CC dimensions (series 3, age 30 and se carley 5, image 59). This causes mild mass effect upon the right kidney. VASCULATURE: Mild atherosclerotic calcifications are present throughout the abdominal aorta and its b ranches. No evidence of aortic aneurysm. MUSCULOSKELETAL: No acute osseous abnormalities. Partial fusion changes of the bilateral SI joints. SOFT TISSUE/ABDOMINAL WALL: Unremarkable IMPRESSION: New conglomerate retroperitoneal adenopathy which encases the IVC and abdominal aorta. Additional abn ormally enlarged left inguinal lymph node. Findings are highly concerning for lymphoma versus metasta tic disease. Consider tissue sampling of the left inguinal lymph node for definitive diagnosis. A Yellow level critical message alert has been initiated for Robin Reeder DO via the [employer] Critical Results System on 10/18/2023 3:02 PM. This message alert has been sent to Robin Reeder DO via the preferences provided by the clinician for the receipt of Radiology Critical Findings. Message ID [id number].
== END | disposition home or self-care (01) ==
LOC: RADCTMAIN 12:00
PROVIDERS: ATTEND Family Medicine
DX: R19.07 Generalized intra-abdominal and pelvic swelling, mass and lump
CPT/HCPCS: 74177

== ENCOUNTER 2023-10-25 11:28 | Day surgery (SDC) | payer BC ==
[~2023-10-25 11:28] MED LIST: fentaNYL (PF) 50 MCG/ML 2 ML AMP IV PRN
[2023-10-25] MEDS: IV FLUID CONTINUATION 1,000 ML IV ONE (12:22)
[2023-10-25] MEDS: ONDANSETRON 4 MG/2 ML VIAL IVP ONE (12:29)
[2023-10-25] MEDS: DEXAMETHASONE SOD PHOSPHATE 4 MG/ML 1 ML VIAL IV ONE (12:30)
[2023-10-25] MEDS: MIDAZOLAM 2 MG/2 ML VIAL IV ONE (12:32)
[2023-10-25] MEDS: LACTATED RINGERS 1,000 ML IV SCH (12:33)
[2023-10-25] MEDS ORDERED: fentaNYL (PF) 50 MCG/ML 2 ML AMP ONE (13:10)
[2023-10-25] MEDS ORDERED: PROPOFOL 10 MG/ML 20 ML VIAL IV ONE (13:10)
[2023-10-25] MEDS ORDERED: LIDOCAINE 1% INJ 10MG/ML (20 ML MDV) ONE (13:10)
[2023-10-25] MEDS: LIDOCAINE 1%-EPI 1:100,000 20 ML VIAL SQ ONE (13:29)
[2023-10-25 14:37] VITALS: TEMP 97
[2023-10-25] MEDS: HYDROmorphone 0.5 MG/0.5 ML SYRINGE IVP PRN (14:55)
[2023-10-25 15:26] VITALS: RESP 18
[2023-10-25 15:41] VITALS: BP 124/69; PULSE 61
--- NOTE | 2023-12-07 10:48 | P.OP ---
Date of Procedure: 10/25/23 Preoperative Diagnosis: enlarge lymph node Postoperative Diagnosis: enlarged left inguinal lymph node Procedure(s) Performed: Sharp excision of a 5cm lymph node Anesthesia: TAMARA Surgeon: Amrit Alas Pathology: other (lymph node) Condition: stable Disposition: PACU Indications for Procedure: enlarged groin lymph node left Operative Findings: enlarged lymph node Description of Procedure: Patient was brought to the operative suite where he was cleaned and draped in sterile fashion. A timeout was performed and everyone agreed with the information recited. Next an oblique incision was made 2cm cephalad to the groin of about 5cm. WE used elctrocautery to dissect down the groin mass. I then used a combination of electrocautery and sharp dissection to resect around the mass. 0-vicryl suture was then used to ligated at the base. The specimen was passed off. A hemostatic timeout was performed and no bleeding was observed. The wound was closed in a series of layers using 2,3,4-0 vicryl suture. the patient tolerated the procedure well and was transferred to pacu in stable condition.
== END 2023-10-25 16:02 | disposition home or self-care (01) ==
LOC: OR 11:28
PROVIDERS: ATTEND Surgery
DX: C83.05 Small cell B-cell lymphoma, lymph nodes of inguinal region and lower limb (principal); J45.909 Unspecified asthma, uncomplicated; K21.9 Gastro-esophageal reflux disease without esophagitis; F41.9 Anxiety disorder, unspecified; F17.210 Nicotine dependence, cigarettes, uncomplicated; Z79.899 Other long term (current) drug therapy; Z90.710 Acquired absence of both cervix and uterus
CPT/HCPCS: 88305; 88342; 88331; 88341; 38531; J2250; J1100; J0690; J2405; J2001; J3010; J2704; J1170

== ENCOUNTER 2023-11-02 23:37 | Emergency (ER) | payer BC ==
[2023-11-02 23:42] VITALS: RESP 18
[2023-11-03] MEDS: SODIUM CHLORIDE 0.9% 1,000 ML IV STA (00:29)
--- NOTE | 2023-11-03 00:29 | ED ---
Recheck HPI - General Chief Complaint: Recheck/Abnormal Lab/Rx Stated Complaint: PO Surgery, ABD Pain Time Seen by Provider: 11/02/23 23:46 Source: patient, RN notes reviewed Mode of arrival: wheelchair Limitations: no limitations - History of Present Illness Initial Comments: This is a 53-year-old female who presents to the emergency department for post operative pain. Patient had lymph nodes in the left groin biopsied with Dr. Alas 1 week ago. States that she was doing fine, and yesterday started to notice that the incision seemed to be draining clear fluid and is increasingly red and painful. After this started draining her pain improved. However, it stopped draining and the area now seems more swollen and is much more painful. Denies any fevers or chills. - Related Data Home Medications Medication Instructions Recorded Confirmed Omeprazole [PriLOSEC] 40 mg PO DAILY 10/24/23 10/25/23 Previous Rx's Medication Instructions Recorded Cephalexin [Keflex] 500 mg PO Q6HR 7 Days #28 cap 11/03/23 Ketorolac [Toradol] 10 mg PO Q6HR PRN #15 tab 11/03/23 Allergies Allergy/AdvReac Type Severity Reaction Status Date / Time No Known Allergies Allergy Verified 11/02/23 23:42 Review of Systems ROS Statement: Those systems with pertinent positive or pertinent negative responses have been documented in the HPI. ROS Other: All systems not noted in ROS Statement are negative. Past Medical History Past Medical History: Asthma, GERD/Reflux, Pneumonia Additional Past Medical History / Comment(s): swollen lymph nodes in groin, pneumonia couple years ago w/covid History of Any Multi-Drug Resistant Organisms: None Reported Past Surgical History: Adenoidectomy, Appendectomy, Cholecystectomy, Hysterectomy, Tonsillectomy Past Anesthesia/Blood Transfusion Reactions: No Reported Reaction Past Psychological History: Anxiety Smoking Status: Current every day smoker Past Alcohol Use History: None Reported Past Drug Use History: None Reported - Past Family History Father Family Medical History: Asthma Additional Family Medical History / Comment(s): Father is . Mother Family Medical History: No Reported History Additional Family Medical History / Comment(s): Mother is healthy General Exam Limitations: no limitations General appearance: alert, in no apparent distress Head exam: Present: atraumatic, normocephalic, normal inspection Respiratory exam: Present: normal lung sounds bilaterally. Absent: respiratory distress, wheezes, rales, rhonchi, stridor Cardiovascular Exam: Present: regular rate, normal rhythm, normal heart sounds. Absent: systolic murmur, diastolic murmur, rubs, gallop, clicks GI/Abdominal exam: Present: other (Incision in the left groin is healing well. There is generalized swelling to that area with induration, warmth, and tenderness) Neurological exam: Present: alert, oriented X3, CN II-XII intact Psychiatric exam: Present: normal affect, normal mood Course Vital Signs 11/02/23 11/03/23 11/03/23 23:40 00:00 01:00 Temperature 97.9 F Pulse Rate 87 76 68 Respiratory 18 16 18 Rate Blood Pressure 126/71 129/90 123/77 O2 Sat by Pulse 98 97 97 Oximetry 11/03/23 11/03/23 02:00 03:08 Temperature 98.6 F Pulse Rate 66 71 Respiratory 18 18 Rate Blood Pressure 123/77 139/97 O2 Sat by Pulse 99 97 Oximetry Medical Decision Making - Medical Decision Making This is a 53 year old female who presents to the emergency department for pain and swelling to her incision. Was pt. sent in by a medical professional or institution? @ -No Did you speak to anyone other than the patient for history? @ -No Did you review nursing and triage notes? @ -Yes, and I agree, it is accurate with regards to the patient's symptoms. Were old charts reviewed? @ -No Differential Diagnosis? @ -Abscess, cellulitis, seroma, hematoma, this is not meant to be an all-inclusive list. EKG interpreted by me (3pts min.)? @ -Not obtained X-rays interpreted by me (1pt min.)? @ -Not obtained CT interpreted by me (1pt min.)? @ -CT scan of the abdomen and pelvis obtained. My interpretation identifies a fluid collection in the left inguinal region. U/S interpreted by me (1pt. min.)? @ -Not obtained What testing was considered but not performed? (CT, X-rays, U/S, labs)? Why? @ -None What meds were considered but not given? Why? @ -None Did you discuss the management of the patient with other professionals? @ -No Did you reconcile home meds? @ -No Was smoking cessation discussed for >3mins.? @ -No Was critical care preformed (if so, how long)? @ -No Were there social determinants of health that impacted care today? How? (Homelessness, low income, unemployed, alcoholism, drug addiction, transportat ion, low edu. Level, literacy, decrease access to med. care, [facility], rehab)? @ -No Was there de-escalation of care discussed even if they declined? (Discuss DNR or withdrawal of care, Hospice)? @ -No What co-morbidities impacted this encounter? (DM, HTN, Smoking, COPD, CAD, Cancer, CVA, Hep., AIDS, mental health diagnosis, sleep apnea, morbid obesity)? @ -None Was patient admitted / discharged? @ -Discharged. Lab work unremarkable. CT scan of the abdomen and pelvis demonstrates a fluid collection with air in the left inguinal region suggestive of a cutaneous abscess. The extensive, conglomerate retroperitoneal adenopathy is noted as well, as seen on prior imaging and consistent with new diagnosis of lymphoma. Patient continued to manipulate this area and a large amount of fluid eventually started to drain and with applying small pressure copious amounts of serous fluid was removed. Patient had significant improvement in symptoms and generalized swelling afterwards. Symptoms were likely related to a postoperative seroma. Will start her on antibiotics for any possible infectious component. Keflex was prescribed along with Toradol for pain management. 1 g of Rocephin administered prior to discharge. Advised she contact her surgeon's office regarding this to see if they would like to see her for a sooner follow- up appointment. Case discussed with ED attending Dr. Dodge. Return precautions reviewed in depth, the patient is instructed to return to the emergency department with any new, worsening, or concerning symptoms. Patient verbalized understanding. Undiagnosed new problem with uncertain prognosis? @ -None Drug Therapy requiring intensive monitoring for toxicity (Heparin, Nitro, Insulin, Cardizem)? @ -None Were any procedures done? @ -None Diagnosis/symptom? @ -Postoperative seroma Acute, or Chronic, or Acute on Chronic? @ -Acute Uncomplicated (without systemic symptoms) or Complicated (systemic symptoms)? @ -Uncomplicated Side effects of treatment? @ -None Exacerbation, Progression, or Severe Exacerbation] @ -Not applicable Poses a threat to life or bodily function? @ -No - Lab Data Result diagrams: 11/03/23 00:37 11/03/23 00:37 Lab Results 11/03/23 11/03/23 11/03/23 Range/Units 00:37 00:37 00:37 WBC 6.6 (3.8-10.6) k/uL RBC 3.88 (3.80-5.40) m/uL Hgb 12.5 (11.4-16.0) gm/dL Hct 37.6 (34.0-46.0) % MCV 96.8 (80.0-100.0) fL MCH 32.1 (25.0-35.0) pg MCHC 33.1 (31.0-37.0) g/dL RDW 11.9 (11.5-15.5) % Plt Count 238 (150-450) k/uL MPV 7.1 Neutrophils % 71 % Lymphocytes % 16 % Monocytes % 8 % Eosinophils % 2 % Basophils % 1 % Neutrophils # 4.7 (1.3-7.7) k/uL Lymphocytes # 1.0 (1.0-4.8) k/uL Monocytes # 0.5 (0-1.0) k/uL Eosinophils # 0.1 (0-0.7) k/uL Basophils # 0.1 (0-0.2) k/uL ESR 13 (0-30) mm/Hr Sodium 140 (137-145) mmol/L Potassium 4.6 (3.5-5.1) mmol/L Chloride 108 H (98-107) mmol/L Carbon Dioxide 27 (22-30) mmol/L Anion Gap 5 mmol/L BUN 15 (7-17) mg/dL Creatinine 0.88 (0.52-1.04) mg/dL Est GFR (CKD-EPI)AfAm 87 (>60 ml/min/1.73 sqM) Est GFR (CKD-EPI)NonAf 76 (>60 ml/min/1.73 sqM) Glucose 115 H (74-99) mg/dL Plasma Lactic Acid Sánchez 1.5 (0.7-2.0) mmol/L Calcium 9.6 (8.4-10.2) mg/dL Total Bilirubin 0.7 (0.2-1.3) mg/dL AST 22 (14-36) U/L ALT 13 (4-34) U/L Alkaline Phosphatase 87 (38-126) U/L C-Reactive Protein 0.5 (<1.0) mg/dL Total Protein 7.2 (6.3-8.2) g/dL Albumin 4.4 (3.5-5.0) g/dL - Radiology Data Radiology results: report reviewed, image reviewed Disposition Clinical Impression: Postoperative seroma Disposition: HOME SELF-CARE Instructions (If sedation given, give patient instructions): Seroma (DC) Additional Instructions: Return to the emergency department with any new, worsening, or concerning symptoms. Take the antibiotic as prescribed for 7 days. Take the Toradol with Tylenol as needed for pain relief. If you choose to take the Toradol, do not take any other anti-inflammatories such as ibuprofen, take one or the other. Contact Dr. Alas's office and let them know that you were found to have a large postoperative seroma and see if they would like to schedule you for a sooner follow-up appointment. Prescriptions: Cephalexin [Keflex] 500 mg PO Q6HR 7 Days #28 cap Ketorolac [Toradol] 10 mg PO Q6HR PRN #15 tab PRN Reason: Pain Is patient prescribed a controlled substance at d/c from ED?: No Referrals: Armando Diaz DO [Primary Care Provider] - 1-2 days Time of Disposition: 02:58
[2023-11-03] MEDS: KETOROLAC 15 MG/ML 1 ML VIAL IVP STA ×2 (00:30→03:02)
[2023-11-03] MEDS: MORPHINE SULFATE 4 MG/ML SYRINGE IVP STA (00:31)
[2023-11-03 00:49] LABS: Basophils # (A) 0.1 k/uL (0-0.2); Basophils % (A) 1 %; Eosinophils # (A) 0.1 k/uL (0-0.7); Eosinophils % (A) 2 %; HCT 37.6 % (34.0-46.0); HGB 12.5 gm/dL (11.4-16.0); Lymphocytes % (A) 16 %; MCH 32.1 pg (25.0-35.0); MCHC 33.1 g/dL (31.0-37.0); MCV 96.8 fL (80.0-100.0); Mean Platelet Volume 7.1; Monocytes # (A) 0.5 k/uL (0-1.0); Monocytes % (A) 8 %; Neutrophils # (A) 4.7 k/uL (1.3-7.7); Neutrophils % (A) 71 %; Platelet Count 238 k/uL (150-450); RBC 3.88 m/uL (3.80-5.40); RDW 11.9 % (11.5-15.5); WBC 6.6 k/uL (3.8-10.6)
[2023-11-03 01:06] LABS: ALT 13 U/L (4-34); AST 22 U/L (14-36); African American GFR (CKD) 87 (>60 ml/min/1.73 sqM); Albumin 4.4 g/dL (3.5-5.0); Alkaline Phosphatase 87 U/L (38-126); Anion Gap 5 mmol/L; Blood Urea Nitrogen 15 mg/dL (7-17); C Reactive Protein 0.5 mg/dL (<1.0); Calcium 9.6 mg/dL (8.4-10.2); Carbon Dioxide 27 mmol/L (22-30); Chloride 108 mmol/L (98-107); Glucose 115 mg/dL (74-99); Non-African American GFR(CKD) 76 (>60 ml/min/1.73 sqM); Potassium 4.6 mmol/L (3.5-5.1); Sodium 140 mmol/L (137-145); Total Bilirubin 0.7 mg/dL (0.2-1.3); Total Protein 7.2 g/dL (6.3-8.2)
--- NOTE | 2023-11-03 01:50 | CT ---
EXAM: CT Abdomen and Pelvis With Intravenous Contrast CLINICAL HISTORY: ITS.REASON CT Reason: Postop swelling and drainage in left groin TECHNIQUE: Axial computed tomography images of the abdomen and pelvis with intravenous contrast. CTDI is 1142.1 mGy and DLP is 19.6 mGy-cm. This CT exam was performed using one or more of the following dose reduction techniques: automated exposure control, adjustment of the mA and/or kV according to patient size, and/or use of iterative reconstruction technique. COMPARISON: No relevant prior studies available. FINDINGS: Lung bases: Unremarkable. No mass. No consolidation. ABDOMEN: Liver: Unremarkable. No mass. Gallbladder and bile ducts: Cholecystectomy. No ductal dilation. Pancreas: Unremarkable. No mass. No ductal dilation. Spleen: Unremarkable. No splenomegaly. Adrenals: Unremarkable. No mass. Kidneys and ureters: Unremarkable. No solid mass. No hydronephrosis. Stomach and bowel: Unremarkable. No obstruction. No mucosal thickening. PELVIS: Appendix: No findings to suggest acute appendicitis. Bladder: Unremarkable. No mass. Reproductive: Unremarkable as visualized. ABDOMEN and PELVIS: Intraperitoneal space: Unremarkable. No free air. No significant fluid collection. Bones/joints: No acute fracture. No dislocation. Soft tissues: Fluid collection with air in LEFT inguinal region, measures approximately 7.0 x 7.0 x 10.2 cm. Correlate for some cutaneous abscess. Vasculature: Unremarkable. No abdominal aortic aneurysm. Lymph nodes: Extensive, conglomerate retroperitoneal adenopathy, correlate for primary malignancy. IMPRESSION: 1. Fluid collection with air in LEFT inguinal region, measures approximately 7.0 x 7.0 x 10.2 cm. Correlate for some cutaneous abscess. 2. Extensive, conglomerate retroperitoneal adenopathy, correlate for primary malignancy. 3. Cholecystectomy.
[2023-11-03] MEDS: ACET/COD 300 MG/30 MG STARTER PACK 6 TAB BTL PO STA (03:02)
[2023-11-03 03:10] VITALS: BP 139/97; PULSE 71; TEMP 98.6
[2023-11-03] MEDS: cefTRIAXone IN SWFI 1,000 MG/10 ML SYRINGE IVP STA (03:13)
[2023-11-03 13:01] LABS: Erythrocyte Sedimentation Rate 13 mm/Hr (0-30)
== END 2023-11-03 03:18 | disposition home or self-care (01) ==
LOC: EC 23:37
CPT/HCPCS: 36415; 74177; 80053; 83605; 85025; 85652; 86140; 96361; 96374; 96375; 96376; 99284

== ENCOUNTER → 2023-12-01 | Outpatient (CLI) | payer BC ==
--- NOTE | 2023-12-03 20:37 | PE ---
EXAMINATION TYPE: PET CT fusion skull to thigh DATE OF EXAM: 12/01/2023 COMPARISON: 11/03/2023 CT abdomen and pelvis Prior PET/CT: No prior at this location HISTORY: Lymphoma TECHNIQUE: Following the intravenous administration of 13.46 mCi of F-18 FDG, whole body images are performed from the skull base to the midthigh. Images are reviewed on the computer in the coronal, a xial, and sagittal planes. Reconstructed rotating images are created on independent workstation and reviewed on the computer. A localization and attenuation correction CT is performed in conjunction with the PET scan. DLP: 479.51 mGycm SCAN: Initial Blood glucose: 91 mg/dL Average Mediastinum SUV: 2 Average Liver SUV: 2.3 FINDINGS: NECK: No abnormal uptake THORAX: There is increased uptake in the paraesophageal region mid thorax, example image 91, SUV 5.63 . ABDOMEN: There is extensive celiac axis region uptake. Periaortic and retrocaval adenopathy is presen t. SUV in this region is 9.84, example image 157. Findings are compatible with patient's reported lym phoma. Lymphadenopathy extends to the aortic bifurcation, with additional Iliac uptake, greater on th e right. Example images 191, SUV 9.38, image 184, SUV 9.35 PELVIS: Some left inguinal and distal left iliac chain adenopathy is evident. Example images 227, SUV 6.25 within the left inguinal region and image 216, SUV 9.17 within the distal left iliac chain sameera on. Some faint uptake may be within the more proximal iliac chain region, image 218, SUV 5.29 There i s some faint uptake within the left inferior inguinal lymph node, image 239, SUV 3.13 OSSEOUS STRUCTURES: No suspicious uptake LOCALIZATION CT: Paraesophageal adenopathy is not excluded. Matted adenopathy in the periaortic and r etrocaval regions extending into the celiac regions really apparent. This extends into the right comm on iliac region. There is fullness of the left distal iliac region. Postbiopsy changes are within the left inguinal region. Left inguinal adenopathy is evident. COMPARISON: Findings correlate with the recent CT examination. IMPRESSION: 1. Extensive matted adenopathy within the periaortic and retrocaval regions extending from the celiac axis level to the proximal common iliac regions with increased uptake compatible with lymphoma. 2. Additional suspicious areas of uptake within the left distal iliac and left inguinal regions. 3. Mild increased uptake within the paraesophageal mid thoracic region may be compatible with small e [place] lymph nodes involved with lymphoma. [facility], , 12/03/2023 8:35 PM
== END | disposition home or self-care (01) ==
LOC: RADPETMAIN 13:05
PROVIDERS: ATTEND Internal Medicine Hematology & Oncology
CPT/HCPCS: 78815

== ENCOUNTER 2024-04-22 09:02 | Day surgery (SDC) | payer BC ==
[2024-04-18 14:59] VITALS: BMI 22.0
[~2024-04-22 09:02] MED LIST changes: +LIDOCAINE 1% (10MG/ML) FOR IV START INTRADERMA PRN; -fentaNYL (PF) 50 MCG/ML 2 ML AMP IV PRN
[2024-04-22 09:37] VITALS: RESP 16; TEMP 97.4
[2024-04-22] MEDS: LACTATED RINGERS 1,000 ML IV SCH (09:45)
[2024-04-22] MEDS: IV FLUID CONTINUATION 1,000 ML IV ONE (09:46)
[2024-04-22] MEDS: MIDAZOLAM 2 MG/2 ML VIAL IV ONE (09:49)
[2024-04-22] MEDS ORDERED: PROPOFOL 10 MG/ML 20 ML VIAL IV ONE (11:11)
--- NOTE | 2024-04-22 11:21 | P.PCN ---
Date of Procedure: 04/22/24 Preoperative Diagnosis: Positive Cologuard Postoperative Diagnosis: Incomplete colonoscopy Procedure(s) Performed: Incomplete colonoscopy Anesthesia: MAC Surgeon: Kylie Cortes Pathology: none sent Condition: stable Disposition: same day Indications for Procedure: 53-year-old female presents after positive Cologuard test. She has never had colonoscopy before. Denies blood in her stool. Plan for colonoscopy for further evaluation. Operative Findings: Patient with significant amount of solid stool still within the colon and inability to visualize lumen Description of Procedure: The patient was brought to the endoscopy suite and placed in left lateral decubitus position and adequate sedation was achieved using conscious sedation. Digital rectal exam was performed and mild internal hemorrhoids were palpated. An endoscope was then placed in the rectum and advanced approximately 25 cm. Solid stool was noted throughout with inability to visualize open lumen. Based on patient's current chemotherapy management and poor prep, decision was made to abort procedure for the safety of the patient. [place] was removed and patient was taken to postanesthesia care unit in stable condition.
[2024-04-22 11:52] VITALS: BP 127/77; PULSE 72
== END 2024-04-22 11:52 | disposition home or self-care (01) ==
LOC: ORWHC2ENDO 09:02
PROVIDERS: ATTEND Surgery
DX: Z12.11 Encounter for screening for malignant neoplasm of colon (principal); K64.8 Other hemorrhoids; Z53.8 Procedure and treatment not carried out for other reasons; J45.909 Unspecified asthma, uncomplicated; F41.9 Anxiety disorder, unspecified; F32.A Depression, unspecified; Z72.0 Tobacco use; Z79.01 Long term (current) use of anticoagulants; Z79.899 Other long term (current) drug therapy; Z85.72 Personal history of non-Hodgkin lymphomas
CPT/HCPCS: 45378; J2250; J2704

== ENCOUNTER 2024-05-08 09:29 | Day surgery (SDC) | payer BC ==
[2024-05-03 15:28] VITALS: BMI 24.2
[~2024-05-08 09:29] MED LIST changes: +HYDROmorphone 0.5 MG/0.5 ML SYRINGE IVP PRN; -LIDOCAINE 1% (10MG/ML) FOR IV START INTRADERMA PRN; +Pre Op ABX Message 1 EACH MISC MISCELLANE ONE; +SCOPOLAMINE 1 MG/72 HR PATCH TRANSDERM ONE
[2024-05-08 09:56] VITALS: TEMP 97.4
[2024-05-08] MEDS: IV FLUID CONTINUATION 1,000 ML IV ONE ×2 (09:59→11:25)
[2024-05-08] MEDS: LACTATED RINGERS 1,000 ML IV SCH (10:08)
[2024-05-08] MEDS: ONDANSETRON 4 MG/2 ML VIAL IVP ONE (10:08)
[2024-05-08] MEDS: DEXAMETHASONE SOD PHOSPHATE 4 MG/ML 1 ML VIAL IV ONE (10:08)
[2024-05-08] MEDS: MIDAZOLAM 2 MG/2 ML VIAL IV PRN (10:09)
[2024-05-08] MEDS ORDERED: MIDAZOLAM 2 MG/2 ML VIAL ONE (11:24)
[2024-05-08] MEDS ORDERED: LIDOCAINE 1% INJ 10MG/ML (20 ML MDV) ONE (11:24)
[2024-05-08] MEDS ORDERED: PROPOFOL 10 MG/ML 20 ML VIAL IV ONE (11:24)
[2024-05-08] MEDS ORDERED: fentaNYL (PF) 50 MCG/ML 2 ML AMP ONE (11:24)
[2024-05-08] MEDS: BUPIVACAINE (PF) 0.25% 30 ML VIAL SQ ONE (11:42)
[2024-05-08] MEDS: HEPARIN SODIUM,PORCINE 100 UNIT/ML 5 ML VIAL IV ONE (11:42)
[2024-05-08] MEDS: IV FLUID CONTINUATION 50 ML with ceFAZolin 2,000 MG IV ONE (11:42)
--- NOTE | 2024-05-08 12:23 | FL ---
EXAMINATION TYPE: FL guided central line placemt DATE OF EXAM: 05/08/2024 12:16 PM COMPARISON: Pre Operative Images if available both CT/MRI or plain film CLINICAL INDICATION: Female, 53 years old with history of Medi-port Insertion; TECHNIQUE: FL guided central line placemt, multiple fluoroscopic images provided for procedure. DAP: 0.6950 mGym2 Gycm2 uGym2 cGycm2 or equivalent. FINDINGS: Fluoroscopic imaging for Port-A-Cath insertion no evidence for pneumothorax. Multilevel degeneration changes of the spine. IMPRESSION: 1. No evidence for intraoperative complication. 2. Please see the operative/procedural note for further details. [facility], , 05/08/2024 12:21 PM
--- NOTE | 2024-05-08 12:34 | P.OP ---
Date of Procedure: 05/08/24 Preoperative Diagnosis: Lymphoma Postoperative Diagnosis: Lymphoma Procedure(s) Performed: Mediport placement under fluoroscopic guidance Anesthesia: MAC Surgeon: Kylie Cortes Pathology: none sent Condition: stable Disposition: same day Indications for Procedure: 53-year-old female with lymphoma requiring chemotherapy treatment. She has had poor venous access and has requested Mediport placement. Risks, benefits and alternatives provided to the patient. All questions answered. Operative Findings: Appropriate flush and withdrawal from Mediport site Description of Procedure: Patient was brought to the operating suite and placed in supine position on the operating table. Sedation was provided by anesthesia and the patient underwent endotracheal intubation. Patient was then prepped and draped in regular sterile fashion. Local anesthetic was administered and the right subclavian vein was entered on first attempt. Guidewire was then placed and location was confirmed under fluoroscopic guidance. At this point local anesthetic was administered to create the pocket for the port. Incision was made and dissection was carried to the prepectoralis fascia. Dissection was carried to free up space for the port. At this point a small incision was made at the guidewire insertion site and a tunnel was created between this guidewire site and the pocket and catheter was placed. Dilator sheath was then placed over the guidewire under fluoroscopic guidance and catheter was then placed. Catheter was noted to be in appropriate position and was connected to the port and port was placed in the pocket. Appropriate flush and withdrawal was noted from the port site. The port was then secured to the prepectoralis fascia in 2 separate locations. Fluoroscopic guidance confirmed location with no kinks in the catheter. Heparin lock was placed. The wound was then closed in layers with 3-0 Vicryl and 4-0 Vicryl subcuticular suture. Sterile dressing was applied. The patient was then taken to postanesthesia care unit in stable condition with pending chest x-ray.
[2024-05-08 12:42] VITALS: RESP 16
--- NOTE | 2024-05-08 13:04 | XR ---
EXAMINATION TYPE: XR chest 1V DATE OF EXAM: 05/08/2024 12:50 PM COMPARISON: Chest radiographs from 12/04/2020 CLINICAL INDICATION: Female, 53 years old with history of PORT A CATH PLACEMENT; LOCATED [facility]IN [facility] TECHNIQUE: XR chest 1V Frontal view of the chest. FINDINGS: Lungs/Pleura: There is no evidence of pleural effusion, focal consolidation, or pneumothorax. Pulmonary vascularity: Unremarkable. Heart/mediastinum: Cardiomediastinal silhouette is unremarkable. Musculoskeletal: No acute osseous pathology. Other findings: None Lines/Tubes: [id number] projecting over the right hemithorax with distal tip at the cavoatrial junction. IMPRESSION: No acute cardiopulmonary disease/process. [facility], , 05/08/2024 1:02 PM
[2024-05-08 13:35] VITALS: BP 114/72; PULSE 72
[2024-05-08 15:16] LABS: Hepatitis C IgG Antibody Nonreactive (Nonreactive)
[2024-05-08 15:30] LABS: Hepatitis B Surface AB- Quant 3.5 mIU/mL
== END 2024-05-08 13:38 | disposition home or self-care (01) ==
LOC: OR 09:29
PROVIDERS: ATTEND Surgery
DX: C85.88 Other specified types of non-Hodgkin lymphoma, lymph nodes of multiple sites (principal); Z45.2 Encounter for adjustment and management of vascular access device
CPT/HCPCS: 86803; 86701; 86706; 77001; 71045; 36561; C1788; J2250; J1642; J1100; J2405; J0690; J2003; J3010; J2704; J0665

== ENCOUNTER → 2024-05-28 | Outpatient (CLI) | payer BC ==
--- NOTE | 2024-05-28 17:06 | US ---
EXAMINATION TYPE: US venous doppler duplex LE LT DATE OF EXAM: 05/28/2024 5:00 PM COMPARISON: 04/03/24 CLINICAL INDICATION: Female, 53 years old with history of R22.42 LOCALIZED SWELLING, MASS AND LUMP, L EFT LOW; lymphoma, on chemo, lt leg edema, Pain TECHNIQUE: The lower extremity deep venous system is examined utilizing real time linear array sonog augusto with graded compression, color doppler sonography, and spectral doppler. SIDE PERFORMED: Left FINDINGS: VESSELS IMAGED: Common Femoral Vein Deep Femoral Vein Greater Saphenous Vein * Femoral Vein Popliteal Vein Small Saphenous Vein * Proximal Calf Veins (* superficial vessels) Left Leg: Negative for DVT, Color Doppler imaging shows patency of the vessels. Spectral waveforms a re within normal limits. exam limited by edema and habitus IMPRESSION: Limited examination due to patient's body habitus and edema. No visualized deep venous thrombosis of the left lower extremity. [facility], , 05/28/2024 5:04 PM
== END | disposition home or self-care (01) ==
LOC: RADUSWWP 16:39
PROVIDERS: ATTEND Internal Medicine Hematology & Oncology
DX: C85.88 Other specified types of non-Hodgkin lymphoma, lymph nodes of multiple sites (principal); R22.42 Localized swelling, mass and lump, left lower limb; F41.9 Anxiety disorder, unspecified; Z71.3 Dietary counseling and surveillance

== ENCOUNTER → 2024-06-11 | Outpatient (CLI) | payer BC ==
[2024-06-11 12:25] LABS: African American GFR (CKD) 87 (>60 ml/min/1.73 sqM); Blood Urea Nitrogen 14 mg/dL (7-17); Non-African American GFR(CKD) 76 (>60 ml/min/1.73 sqM)
--- NOTE | 2024-06-11 14:12 | CT ---
EXAMINATION TYPE: CT ChestAbdPelvis w con DATE OF EXAM: 06/11/2024 COMPARISON: CT abdomen and pelvis dated 03/15/2024 CLINICAL INDICATION: Female, 53 years old with history of C85.[address] NON-[address] DLP: 1097.9 mGycm Automated exposure control for dose reduction was used. CONTRAST: CT scan of the chest, abdomen and pelvis is performed with Oral Contrast and with IV Contrast, patien t injected with 100ml mL of Isovue 300. FINDINGS: CT chest: There are mild emphysematous changes. There is a Mediport catheter tip in the SVC/RA junction. There is no suspicious lung mass or nodule. There is no abnormal airspace/consolidative density or abnormal interstitial density. There is no pleural effusion, pleural thickening or pneumothorax. The great vessels and chest are normal there is no mediastinal, hilar or axillary adenopathy. No focal osseous lesions are seen. CT abdomen and pelvis: There is surgical absence of the gallbladder. There is no biliary ductal dilatation. There is no focal mass or organomegaly involving the liver, pancreas, spleen or adrenal glands.. There is no solid renal mass or hydronephrosis. There is been a marked reduction in the retroperitoneal lymphadenopathy. Likely, there is a small 11. 4 mm short axis lymph node aortocaval node at the aortic bifurcation. This proximal bifurcation small mantle of soft tissue which is 9.2 mm in greatest dimension. There is been marked reduction in the left internal inguinal adenopathy which has decreased from 5.1 x 3.4 cm to approximately 1.2 x 2.2 cm. There is stable amorphous soft tissue density in the left ing uinal region likely related to prior biopsy or catheterization and may represent scarring in the sub cutaneous soft tissues. The bowel loops are normal in caliber and there is no dilatation or obstruction. No inflammatory elvi nges identified in the bowel wall and mesentery. There is no free intracranial air or fluid.. No focal osseous lesions are seen. IMPRESSION: 1. No evidence of metastatic disease or neoplasm within the chest. 2. Marked reduction in the retroperitoneal and left inguinal adenopathy as described above. [facility], , 06/11/2024 2:10 PM
== END | disposition home or self-care (01) ==
LOC: RADCTMAIN 11:37
PROVIDERS: ATTEND Internal Medicine Hematology & Oncology
DX: C85.88 Other specified types of non-Hodgkin lymphoma, lymph nodes of multiple sites (principal); F41.9 Anxiety disorder, unspecified; Z71.3 Dietary counseling and surveillance; R59.0 Localized enlarged lymph nodes
CPT/HCPCS: 82565; 84520; 71260; 74177; 36415; Q9967